=== PATIENT | male | born 1965 | race Caucasian/White ===

== ENCOUNTER 2018-05-26 05:54 | Inpatient (IN) ==
[2018-05-26] MEDS ORDERED: CeFAZolin Syr 2,000MG/20 ML 2,000 MG/20 ML SYRINGE IVPB ONE (06:18)
[2018-05-26] MEDS ORDERED: Ringers Solution, Lactated 1,000 ML IVC SCH ×2 (06:30→10:30)
--- NOTE | 2018-05-26 06:39 | History & Physical Report ---
Date of Encounter: 05/26/18 Time of Encounter: 06:39 24 Hour HP Update - Instructions Instructions: If the History and Physical is less than 30 days old and was completed prior to A.M. admission and or procedure and has NOT been updated on calendar day of procedure please complete this update prior to performing procedure. - Update Patient reports changes in Medical Condition: No Changes in examination, assessment, or condition: No Changes in Medication: No Preop tests/diagnostics Reviewed: Yes Surgery Remains Indicated: Yes Consent for Planned Operative Procedure(s) Verified: Yes - Pre-Operative Checklist Preoperative Checklist Indicated: Yes Prophylactic Antibiotic Ordered: Yes Home Medications Include Beta Mallory: No Is VTE Prophylaxis Indicated?: Yes
[2018-05-26] MEDS ORDERED: Bupivacaine-MPF 0.25% 10 ML VIAL ONE (07:15)
--- NOTE | 2018-05-26 07:19 | Anesthesia Evaluation PreOp ---
Date of Encounter: 05/26/18 Time of Encounter: 07:17 - Past History Planned Operation: Robotic prostatectomy Cardiac History: Denies any Significant Hx Pulmonary History: Denies Any Significant HX [employer] History: Denies Any Significant HX Other Medical History: Other (prostate ca) Anesthesia History: No Prior Anesthetic Complications, Past Anesthesia (vasectomy, testicle drainage, toe, lasik, R foot) Alcohol Use: rarely Drug use: none Medications and Allergies Allergy/AdvReac Type Severity Reaction Status Date / Time No Known Allergies Allergy Verified 04/26/17 07:22 - Meds/Allergy Pre-op Review Medications Reviewed: Yes Allergies Reviewed: Yes Beta Blockers on Current Med List: No Anesthesia Results - Labs pending Anesthesia Exam O2 Sat Height 1.75 m Height 1.75 m Height 1.75 m Weight 106.141 kg Weight 106.141 kg Weight 106.141 kg O2 Sat by Pulse Oximetry 98 O2 Sat by Pulse Oximetry 98 Vital Signs Temp Pulse Resp BP Pulse Ox 98.3 F 104 18 122/82 98 05/26/18 06:17 05/26/18 06:17 05/26/18 06:17 05/26/18 06:17 05/26/18 06:17 Weight: 106kg NPO (# of Hours): >8 Pain Scale: 3 (toe) Pain Scale Used: Numeric (1 - 10) - HEENT Pupil (Motor): Pupils equal, EOMI Mallampati: II (full jasmine) Teeth: Normal Oral Opening: Greater than 3 - [employer] LOC: Oriented [employer] Motor: Normal RUE, Normal LUE, Normal RLE, Normal LLE, Normal Face [employer] Sensory: Normal: RUE, LUE, RLE, LLE, Face - Cardiac Rhythm: Regular - Pulmonary Breath Sounds: bilateral Clear Respiratory Effort: Symmetrical Anesthesia Assess/Plan ASA Score: 3 (prostate ca) Monitoring Plan: Standard Monitors Recovery Plan: PACU
[2018-05-26] MEDS ORDERED: *HR* Rocuronium Bromide 50 MG/5 ML VIAL ONE ×3 (07:33→10:17)
[2018-05-26] MEDS ORDERED: Lidocaine -MPF 2% 2 ML VIAL ONE (07:33)
[2018-05-26] MEDS ORDERED: Dexamethasone 4 MG/ML VIAL ONE (07:33)
[2018-05-26] MEDS ORDERED: Ondansetron 4 MG/2 ML VIAL ONE ×2 (07:33→13:12)
[2018-05-26] MEDS ORDERED: Lidocaine -MPF 4% 5 ML AMPUL ONE (07:33)
[2018-05-26] MEDS ORDERED: *HR* Propofol 200 MG/20 ML VIAL IVP ONE (07:34)
[2018-05-26] MEDS ORDERED: *HR* Midazolam HCl 2 MG/2 ML VIAL ONE (07:34)
[2018-05-26] MEDS ORDERED: *HR* FentaNYL (PF) 100 MCG/2 ML VIAL ONE (07:34)
[2018-05-26] MEDS ORDERED: Acetaminophen IV 1,000 MG/100 ML INFUS..BTL ONE (07:39)
[2018-05-26 08:00] LABS: Basophils % 0.3 %; Eosinophils # 0.2 K/mcL (0.0-0.6); Eosinophils % 2.7 %; Hematocrit 45.2 % (37.5-50.1); Hemoglobin 15.2 g/dL (12.9-16.9); Immature Granulocytes % 0.2 % (0-4); Lymphocytes # 1.5 K/mcL (0.6-4.6); Lymphocytes % 24.7 %; Mean Corpuscular HGB Conc 33.6 g/dL (31.6-35.5); Mean Corpuscular Hemoglobin 28.6 pg (28.0-33.3); Mean Platelet Volume 9.9 fL (9.4-12.4); Monocytes # 0.6 K/mcL (0.0-1.3); Monocytes % 10.8 %; Neutrophils # 3.6 K/mcL (1.6-8.9); Platelet Count 221 K/mcL (140-400); Red Blood Count 5.32 M/mcL (4.19-5.50); Red Cell Distribution Width 13.2 % (11.5-14.5); Segmented Neutrophils % 61.3 %
[2018-05-26 08:17] LABS: BUN/Creatinine Ratio 19 (6-26); Blood Urea Nitrogen 15 mg/dL (6-20); Calcium 9.1 mg/dL (8.6-10.3); Carbon Dioxide 33 mEq/L (23-29); Chloride 103 mEq/L (98-107); Glucose 109 mg/dL (70-105); Osmolality,Calculated 283 (280-300); Potassium 4.4 mEq/L (3.5-5.1); Sodium 136 mEq/L (136-145); eGFR For Non-African Americans > 60 (> 60)
[2018-05-26] MEDS ORDERED: *HR* PHENYLEPHRINE 1,000 MCG/10 ML SYRINGE IVP ONE (08:39)
[2018-05-26] MEDS ORDERED: *HR* HYDROmorphone (PF) 1 MG/ML SYRINGE IVP PRN (10:21)
[2018-05-26] MEDS ORDERED: Ondansetron 4 MG/2 ML VIAL IVP ONE (10:21)
[2018-05-26] MEDS ORDERED: *HR* Meperidine 25 MG/ML SYRINGE IVP PRN (10:21)
[2018-05-26] MEDS ORDERED: *HR* Promethazine 25 MG/ML VIAL IVP PRN (10:21)
[2018-05-26] MEDS ORDERED: *HR* OxyCODONE Immed Rel 5 MG TABLET PO PRN ×2 (10:21→15:06)
[2018-05-26] MEDS ORDERED: Neostigmine Methylsulfate 3 MG/3 ML SYRINGE ONE (12:56)
[2018-05-26] MEDS ORDERED: Ketorolac 30 MG/ML VIAL ONE (13:06)
[2018-05-26] MEDS ORDERED: *HR* HYDROMORPHONE 2 MG/ML VIAL ONE (13:33)
--- NOTE | 2018-05-26 13:34 | Operative Note ---
Date of procedure: 05/26/18 Pre-op diagnosis: Prostate cancer Post-op diagnosis: same Procedure: Robotic-assisted radical prostatectomy with bilateral pelvic lymph node dissection Implants: 20-Citizen [place] Mcdonnell catheter 19-[place] Adebayo drain Complications: None Anesthesia: GETA Surgeon: Romel Lawler Was there an assistant service manager present: Yes Applications System Analyst: Gabby Lim Estimated blood loss (cc): 150 Specimen: prostate, left and right pelvic lymph nodes, fat over prostate Condition: stable Disposition: PACU Procedure in Detail: INDICATIONS FOR PROCEDURE: Mr. Delacruz is a 53 year-old male with history of elevated PSA. He was found on prostate needle biopsy to have Jenny 3+4 prostate cancer along the left side. He is now presenting for robotic assisted prostatectomy with bilateral pelvic lymph node dissection. He was informed of the risks of the procedure including but not limited to bleeding, infection, injury to other structures, need for further procedures, lymphocele, urinary incontinence, urine leak, erectile dysfunction, bladder neck contracture, rectal injury, and the risk of anesthesia. He is willing to proceed. PROCEDURE: After informed consent was obtained, the patient was taken to the operating room, placed supine on the table. He was given IV antibiotics for antibiotic coverage. He had KERON's and SCD's placed on the lower extremities for DVT prophylaxis. Induction of general anesthesia was performed. The arms were tucked and he was placed in lithotomy position. He was secured to the OR table with padding. A 10mm incision was made in the infraumbilical region.. The Veress needle was introduced. The water drop test passed. Pneumoperitoneum was initiated with low pressures initially. The abomen was insufflated. I then placed a robotic port through this incision. Once the trocar was in place, the 0 degree camera for the robot was placed in the field and remaining trocars were placed. Robotic ports were placed x 2 on the right side. We placed another robotic port to the left of the umbilicus. We also placed a 12mm port in the left lower quadrant and a 5mm port superior and to the left of the umbilicus. Once all trocars were in place, the robot was docked to the patient and the monopolar scissors were placed on the right robotic arm. The bipolar [place] was in the left robotic arm and the Prograsp in the 4th arm. We initially retracted the bowel with the 4th arm. The medial umbilical ligaments were cauterized and the bladder was taken down off the anterior abdominal wall using electrocautery. The bladder was dissected down to the endopelvic fascia. The bladder was then grasped with a 4th arm and retracted cephalad. We then swept the periprostatic fat off the prostate as well as the pelvic sidewall. We then incised the endopelvic fascia on both sides and carried the incision up to the prostatic apex, sweeping the levator fibers off of the prostate. The puboprostatic ligaments were carefully incised. We then placed an 0 Vicryl suture through the dorsal venous complex and tied it down with a slip knot. Once the dorsal venous complex was ligated, we then turned our attention to the bladder neck which was incised with the monopolar cautery until the catheter was visualized at the bladder neck. The posterior bladder neck was then opened using the cautery until the space between the prostate and the bladder neck was visual ized. Eventually, the vas deferens and seminal vesicals were encountered. The vas deferens were cauterized and divided. We pulled the seminal vesicles up into the field to help retract the prostate in cephalad direction. Denonvillier's fascia was dissected off the prostate posteriorly. The left nerve bundle was then released sharply. I carefully divided the pedicles using multiple Hem-o-wilson clips to clip the larger prostatic pedicle. Once the pedicles were controlled the nerves were carefully dissected off the posterior aspect of the prostate. Attention was then turned to the right side. The nerve bundle was again released sharply and the pedicles were controlled using Hem-o-wilson clips. The nerve bundle was then carefully dissected off the posterior aspect of the prostate. We then used the 4th arm to place the prostate on stretch in cephalad direction. We then transected the dorsal venous complex. The stitch over the dorsal venous complex came off. There was a mild amount of bleeding from the dorsal vein. Once I got to the urethra I oversewed the dorsal vein with an 0 Vicryl suture. A second 2-0 Vicryl suture was used to selectively close another vessel at the dorsal vein which was bleeding. The urethra was then this was incised with cold scissors. I cut across the urethra until the catheter was visualized. The catheter was removed and the posterior urethra was transected. The prostate was then freed. Hemostasis was adequate. Attention was then turned to the left pelvic sidewall. The external iliac vein was identified. Careful dissection proceeded anteriorly to the node of [place]. A clip was placed across this. The node packet was dissected down to the obturator nerve. This was identified. The pelvic lymph node packets were then sent separately. I turned my attention to the right pelvic sidewall. The external iliac vein was identified. Careful dissection then isolated the lymph node packet and the obturator nerve was identified. Weck clips were placed at the superior aspect of the lymph node packet. a vein was identified located superficially. This was transected with the node packet. I placed a clip across it. The right pelvic lymph nodes were sent separately. The urethral vesicle anastomosis was then performed with a 3-0 V-Wilson suture in running fashion starting at 6 o'clock position. With two sutures tied together we then ran the right side up about [facility]. The left side was then run around until the bladder was reanastamosed to the urethra. The final 20 [place] catheter was placed into the bladder and balloon filled with 15 mL of sterile water. The bladder was irrigated. No leak was identified. A 19 [place] Adebayo drain was placed through the trocar down into the pelvis. The trocar was removed and drain sewn in place with a suture. The robot was then undocked from the patient. Using laparoscopic instruments I then moved the string from the Endo Catch bag over to the umbilical port with the assistance of the 8 mm robotic camera. After extending the incision slightly with the electrocautery the EndoCatch bag was then removed from the camera port. The abdominal fascia was then closed in an interrupted fashion with 0 Vicryl suture. All incisions were instilled with 0.25% Marcaine. The remaining trocars were removed under direct vision and all incisions were then closed with 4-0 Monocryl in subcuticular fashion. The patient was then awakened from general anesthesia and brought to the recovery room in good condition. All sponge, needle, and instrument counts were correct.
--- NOTE | 2018-05-26 14:43 | Anesthesia Evaluation Post Op ---
Date of Encounter: 05/26/18 Time of Encounter: 14:42 - Vital Signs Vital Signs: Vital Signs/O2 Sat/Glucose, Most Recent Temp Pulse Resp BP Pulse Ox 97.7 F 98 20 120/76 93 05/26/18 14:06 05/26/18 14:26 05/26/18 14:26 05/26/18 14:26 05/26/18 14:26 - Lungs Lungs: Clear Ascult./Percussion - Airway Airway: Non-obstructed - Cardiovascular Regular Rate - Mental Status Mental Status: Alert & Oriented, Answers Appropriately - Pain Pain Scale: 0 - Nausea Vomiting Nausea Vomiting: Not Present - Hydration Hydration: Tolerates oral liquids - Discharge PostOp Status: Transfer Patient to floor
[2018-05-26] MEDS ORDERED: Acetaminophen 325 MG TABLET PO PRN (15:06)
[2018-05-26] MEDS ORDERED: OXYCODONE Oral CONC 10 MG/0.5 ML ORAL.SYG SL PRN (15:06)
[2018-05-26] MEDS ORDERED: Naloxone 0.4 MG/ML INJ IVP PRN (15:06)
[2018-05-26] MEDS: *HR* Heparin 5,000 UNIT/ML VIAL SQ SCH (16:44)
[2018-05-26] MEDS: 0.9 % Sodium Chloride 1,000 ML IVC SCH (16:44)
[2018-05-26] MEDS: ceFAZolin 2,000 MG in 0.9 % Sodium Chloride 100 ML IVPB SCH (17:31)
[2018-05-26] MEDS: Ketorolac 15 MG/ML VIAL IVP PRN (22:16)
[2018-05-27] MEDS: ceFAZolin 2,000 MG in 0.9 % Sodium Chloride 100 ML IVPB SCH ×2 (00:10→10:11)
[2018-05-27] MEDS: 0.9 % Sodium Chloride 1,000 ML IVC SCH ×3 (01:36→18:47)
[2018-05-27 03:26] LABS: Hematocrit 39.9 % (37.5-50.1); Mean Corpuscular HGB Conc 33.3 g/dL (31.6-35.5); Mean Corpuscular Hemoglobin 28.7 pg (28.0-33.3); Mean Corpuscular Volume 86.2 fL (83.0-100.0); Mean Platelet Volume 9.7 fL (9.4-12.4); Platelet Count 231 K/mcL (140-400); Red Blood Count 4.63 M/mcL (4.19-5.50); Red Cell Distribution Width 13.5 % (11.5-14.5)
[2018-05-27 03:31] LABS: Hemoglobin 13.3 g/dL (12.9-16.9)
[2018-05-27 03:48] LABS: BUN/Creatinine Ratio 20 (6-26); Blood Urea Nitrogen 18 mg/dL (6-20); Calcium 8.3 mg/dL (8.6-10.3); Carbon Dioxide 28 mEq/L (23-29); Chloride 103 mEq/L (98-107); Glucose 142 mg/dL (70-105); Osmolality,Calculated 288 (280-300); Potassium 4.6 mEq/L (3.5-5.1); Sodium 137 mEq/L (136-145); eGFR For Non-African Americans > 60 (> 60)
[2018-05-27] MEDS: *HR* Heparin 5,000 UNIT/ML VIAL SQ SCH ×2 (06:09→18:15)
--- NOTE | 2018-05-27 09:19 | Discharge Summary ---
Orders not resulted at time of discharge: Pending orders 05/26/18 12:08 Surgical Pathology [PTH] Routine 05/26/18 12:14 Surgical Pathology [PTH] Routine 05/26/18 13:18 Surgical Pathology [PTH] Routine 05/26/18 13:22 Surgical Pathology [PTH] Routine Date of Encounter: 05/31/18 Time of Encounter: 07:04 - Discharge Diagnosis (1) Prostate cancer Priority: Primary Status: Acute (2) Chronically elevated hemidiaphragm Priority: Secondary Status: Acute (3) Postoperative ileus Priority: Secondary Status: Acute - Hospital Course Hospital course: Mr. Delacruz is a 53 year old male with a history of prostate cancer. On 05/26/2018 he underwent a robotic-assisted radical prostatectomy with bilateral pelvic lymph node dissection. On postoperative day #1 his diet was advanced. He became distended. He began to vomit. A KUB showed distended bowel loops with air-fluid levels. A CT scan showed a transition point in the terminal ileum. An NG tube was placed. Hospitalists and general surgery consults were obtained. Eventually, he began to pass gas. The NG tube was removed. His diet was slowly advanced. On postoperative day #5 he was tolerating general diet and having bowel movements. He was then discharged home that day. - Time Spent with Patient Total time spent providing and/or coordinating discharge services: Less than 30 minutes Labs on day of discharge: Labs from last 24 hours 05/27/18 05/27/18 02:57 02:57 WBC 11.1 D RBC 4.63 Hgb 13.3 D Hct 39.9 MCV 86.2 MCH 28.7 MCHC 33.3 RDW 13.5 Plt Count 231 MPV 9.7 Sodium 137 Potassium 4.6 Chloride 103 Carbon Dioxide 28 BUN 18 Creatinine 0.88 Est GFR ( Amer) > 60 Est GFR (Non-Af Amer) > 60 BUN/Creatinine Ratio 20 Glucose 142 H Calculated Osmolality 288 Calcium 8.3 L - Discharge Medications Prescriptions: Docusate Sodium [Doc-Q-Lace] 100 mg PO BID #60 capsule Home Medications: Docusate Sodium [Doc-Q-Lace] 100 mg PO BID #60 capsule 05/27/18 [Rx] Allergies/Adverse Reactions: Allergy/AdvReac Type Severity Reaction Status Date / Time No Known Allergies Allergy Verified 04/26/17 07:22 Date of admission: 05/26/18 14:57 Primary care physician: PCP [place] Consults: Internal medicine General surgery Discharging clinician: Romel Lawler Anticipated date of discharge: 05/31/18 Exam Initial Vital Signs Temp Pulse Resp BP Pulse Ox 98.3 F 104 18 122/82 98 05/26/18 06:17 05/26/18 06:17 05/26/18 06:17 05/26/18 06:17 05/26/18 06:17 - General physical appearance Present: well developed, well nourished, no distress - Eyes Absent: icteric - ENT Present: normal nares - Neck Present: trachea midline - Respiratory Present: normal respiratory effort - Cardiovascular Cardiovascular exam IM: RRR - Abdomen Abdomen: Present: soft (Incisions are clean, dry, and intact. No evidence of infection) - Genitourinary normal penis with no external lesions (Mcdonnell catheter in place with clear urine) - Integumentary Present: no rash - Neurologic Present: normal coordination - Musculoskeletal Present: normal gait - Patient Status Disposition: Home, Self-Care Condition: Good Functional capacity at discharge: independent ambulation Overall status at discharge: patient is progressing back to baseline - Discharge Instructions Follow Up With: Georgia Archer PAC [Physician Dampener] - 06/14/18 8:45 am Romel Lawler MD [Partnered Physician] - 06/02/18 10:15 am () [place],PCP [Primary Care Provider] - (Please follow up with your PCP.) Additional Instructions: Please provide catheter care instructions - leg bag, night bag, leg strap and how to change the bags appropriately. 1. No heavy lifting greater than 20 pounds x2 weeks. 2. No tub baths for 2 weeks. 3. May shower. 4. He should follow up in 1 week for voiding trial. 5. He should return for any fevers, chills, nausea, vomiting, or significant hematuria. 6. Please provide dressing supplies for drain site. 7. He can use bacitracin to the penile meatus for catheter comfort. - Diet and Activity Activity: increase activity as tolerated Diet: advance to your usual diet
[2018-05-27] MEDS: Ondansetron 4 MG/2 ML VIAL IVP PRN ×2 (10:11→19:25)
[2018-05-27] MEDS: Ketorolac 15 MG/ML VIAL IVP PRN (15:22)
[2018-05-27] MEDS ORDERED: Metoclopramide 10 MG/2 ML VIAL IVP PRN (15:49)
[2018-05-27] MEDS ORDERED: Bisacodyl 10 MG RECTAL SUPPOSITORY RC ONE (15:51)
[2018-05-27] MEDS ORDERED: Famotidine 20 MG TABLET PO PRN (18:57)
--- NOTE | 2018-05-27 18:59 | Event Note ---
Date of Encounter: 05/27/18 Time of Encounter: 18:58 Patient felt bloated this afternoon. I added on Reglan and ordered a suppository. He will remain in patient tonight.
[2018-05-27] MEDS ORDERED: *HR* Promethazine 25 MG/ML VIAL IVP PRN (20:02)
[2018-05-27] MEDS ORDERED: Ondansetron 4 MG/2 ML VIAL IVP PRN (21:35)
[2018-05-27] MEDS ORDERED: Ondansetron 4 MG/2 ML VIAL IVP ONE (21:36)
[2018-05-27 21:58] LABS: Basophils % 0.2 %; Hematocrit 46.3 % (37.5-50.1); Immature Granulocytes % 0.3 % (0-4); Lymphocytes # 0.9 K/mcL (0.6-4.6); Lymphocytes % 6.4 %; Mean Corpuscular HGB Conc 32.4 g/dL (31.6-35.5); Mean Corpuscular Hemoglobin 28.5 pg (28.0-33.3); Mean Corpuscular Volume 87.9 fL (83.0-100.0); Mean Platelet Volume 9.4 fL (9.4-12.4); Monocytes # 0.9 K/mcL (0.0-1.3); Monocytes % 6.1 %; Neutrophils # 12.8 K/mcL (1.6-8.9); Platelet Count 297 K/mcL (140-400); Red Blood Count 5.27 M/mcL (4.19-5.50); Red Cell Distribution Width 13.6 % (11.5-14.5)
[2018-05-27] MEDS ORDERED: Isovue-370 500 ML INFUS..BTL IV ONE (22:51)
--- NOTE | 2018-05-28 02:26 | Internal Medicine Consult Note ---
Addendum entered and electronically signed by Moe Pastor 05/29/18 15:42: Original Note: <Moe Abbott - Last Filed: 05/28/18 02:24> Date of Encounter: 05/28/18 Time of Encounter: 02:24 - Assessment and plan (1) Shortness of breath Current Visit: Yes Status: Acute (2) Abdominal pain Current Visit: Yes Status: Acute - Time Spent With Patient Total time spent is greater than 50% in coordination of care (as documented) at patient's floor/unit and/or counseling patient: Internal Medicine - CN: HPI - Data of Consult Patient: new to practice Requesting Physician: Romel Lawler, - Consult Narrative Reason for consult: Increasing shortness of breath post surgery History of present illness: Mr. Delacruz is a 53 year old male presenting with increased shortness of breath, abdominal pain and distention, and vomiting. He recently underwent surgery for prostate cancer on 05/[address] Lawler. At presentation he was on 8 L of oxygen and with an 02 SAT of 90%. Additionally patient was vomiting dark vomitus. He was afebrile at the time and his most recent CBC in a.m. was normal. Family also note that patient was somnolent. He recently received Phenergan due to nausea and vomiting. He ordered stat CBC, CXR. CBC returned elevated white blood cell count of 14. His chest x-ray showed significant elevation of left hemidiaphragm dilation and GI tract. At this point we started at NG tube which had 1.4 L of output. We then ordered CT abdomen and chest with contrast\which showed moderate axilla atelectasis left upper and lower lobes, minimal right basilar atelectasis, mildly dilated jejunum without discrete transition point indicating postoperative ileus, and small amounts of free air in the abdomen normal for surgery. Past Med Surg Social Fam HX - Past Medical History Medical history: no medical history Additional medical history: prostate cancer Psychiatric history: no psych history - Past Surgical History Surgical History: vasectomy, other Additional surgical history: VAS 1989. right toe sx x3 2004. testicle drainage 2014. lasik sx 10/2016 - Social History Smoking Status: Never smoker Smokeless Tobacco Status: No Alcohol use: rarely Drug use: none Internal Medicine - CN: Meds Docusate Sodium [Doc-Q-Lace] 100 mg PO BID #60 capsule 05/27/18 [Rx] Allergy/AdvReac Type Severity Reaction Status Date / Time No Known Allergies Allergy Verified 04/26/17 07:22 Hospitalist - CN: Exam - Constitutional Vitals: Temp Pulse Resp BP Pulse Ox 99.0 F 101 16 135/73 92 05/27/18 23:57 05/27/18 23:57 05/27/18 23:57 05/27/18 23:57 05/27/18 23:57 General appearance IM: Present: A&O X 3, severe distress Exam: . - Head Head exam: Present: atraumatic, normal inspection - Eye Eye exam: Present: EOMI, normal appearance - Neck Neck exam general surgery: Present: supple, trachea midline - Respiratory Respiratory exam: Present: decreased breath sounds, rhonchi, wheezes - Expanded Respiratory Exam Location: decreased breath sounds: Left, wheezes: Left, Right - Cardiovascular Cardiovascular exam IM: Present: RRR, +S1, +S2 - GI/Abdominal GI/Abdominal exam IM: Present: distended, rigid, tenderness. Absent: guarding - Extremities Exam Extremities exam IM: Present: normal inspection, radial pulses palpable and symmetrical - Neurological Exam Neurological exam: Present: no focal deficits - Psychiatric Psychiatric exam: Present: agitated, anxious - Skin Skin exam IM: Present: dry, intact, warm Internal Medicine - CN: Reslt - Labs CBC & Chem 7: 05/27/18 21:48 05/27/18 02:57 Labs: Short CBC 05/27/18 05/27/18 Range/Units 02:57 21:48 WBC 11.1 D 14.7 H (4.3-11.1) K/mcL Hgb 13.3 D 15.0 D (12.9-16.9) g/dL Hct 39.9 46.3 (37.5-50.1) % Plt Count 231 297 (140-400) K/mcL Neutrophils # 12.8 H (1.6-8.9) K/mcL BMP 05/27/18 02:57 Sodium 137 Potassium 4.6 Chloride 103 Carbon Dioxide 28 BUN 18 Creatinine 0.88 Glucose 142 H Calcium 8.3 L - Impressions Impressions Chest X-Ray 05/27/18 21:38 IMPRESSION: 1. Interval marked elevation of the left hemidiaphragm with volume loss in the left lung. CT should be considered to better evaluate. D/ / 05/27/2018 23:08:39 Trevor Roche MD / [email or web address] Interpreting Provider: Trevor Roche MD KUB X-Ray 05/27/18 23:07 IMPRESSION: 1. Possible free intraperitoneal air under the right hemidiaphragm. 2. Nasogastric tube in appropriate position. 3. Interval decompression of the stomach. Persistent elevated left hemidiaphragm. 4. Dilated small bowel up to 5.5 cm concerning for small bowel obstruction. D/ / Trevor Roche MD / Trevor Roche MD Interpreting Provider: Trevor Roche MD Abdomen/Pelvis CT 05/28/18 22:51 IMPRESSION: 1. Elevated left hemidiaphragm. Moderate atelectasis or airspace disease in the left upper lobe and left lower lobe. An element of chronic volume loss and scarring is suspected in the left lower lobe. 2. Minimal right basilar atelectasis. 3. Mildly dilated jejunum up to 4 cm without discrete transition point. Findings favor an acute postoperative ileus. 4. Small amount of free intraperitoneal air and small amount of pelvic ascites are likely postoperative given the recent prostatectomy. Associated soft tissue gas is present in the pelvis and proximal thighs. D/ / Trevor Roche MD / Trevor Roche MD Interpreting Provider: Trevor Roche MD Chest CT 05/28/18 22:54 IMPRESSION: 1. Elevated left hemidiaphragm. Moderate atelectasis or airspace disease in the left upper lobe and left lower lobe. An element of chronic volume loss and scarring is suspected in the left lower lobe. 2. Minimal right basilar atelectasis. 3. Mildly dilated jejunum up to 4 cm without discrete transition point. Findings favor an acute postoperative ileus. 4. Small amount of free intraperitoneal air and small amount of pelvic ascites are likely postoperative given the recent prostatectomy. Associated soft tissue gas is present in the pelvis and proximal thighs. D/ / Trevor Roche MD / Trevor Roche MD Interpreting Provider: Trevor Roche MD Consult Discharge Plan - Plan Additional Instructions: Please provide catheter care instructions - leg bag, night bag, leg strap and how to change the bags appropriately. 1. No heavy lifting greater than 20 pounds x2 weeks. 2. No tub baths for 2 weeks. 3. May shower. 4. He should follow up in 1 week for voiding trial. 5. He should return for any fevers, chills, nausea, vomiting, or significant hematuria. 6. Please provide dressing supplies for drain site. 7. He can use bacitracin to the penile meatus for catheter comfort. Referrals: Romel Lawler MD [Partnered Physician] - (Web request sent 05/27/18 at 1000. ) [facility] - (Please follow up with your PCP.) Prescriptions: Docusate Sodium [Doc-Q-Lace] 100 mg PO BID #60 capsule <Moose Tyson - Last Filed: 05/28/18 19:39> Date of Encounter: 05/28/18 - Time Spent With Patient Total time spent is greater than 50% in coordination of care (as documented) at patient's floor/unit and/or counseling patient: Internal Medicine - CN: HPI - Data of Consult Requesting Physician: Romel Lawler, - Consult Narrative History of present illness: Mr. Delacruz is a 53 year old male Hospitalist - CN: Exam - Constitutional Vitals: Temp Pulse Resp BP Pulse Ox 98.2 F 73 16 113/80 93 05/28/18 19:00 05/28/18 19:00 05/28/18 19:00 05/28/18 19:00 05/28/18 19:00 Internal Medicine - CN: Reslt - Labs CBC & Chem 7: 05/28/18 04:12 05/28/18 04:12 Labs: Short CBC 05/27/18 05/28/18 Range/Units 21:48 04:12 WBC 14.7 H 12.8 H (4.3-11.1) K/mcL Hgb 15.0 D 13.9 (12.9-16.9) g/dL Hct 46.3 41.5 (37.5-50.1) % Plt Count 297 261 (140-400) K/mcL Neutrophils # 12.8 H (1.6-8.9) K/mcL BMP 05/28/18 04:12 Sodium 138 Potassium 4.8 Chloride 100 Carbon Dioxide 33 H BUN 21 H Creatinine 0.83 Glucose 135 H Calcium 8.7 - Impressions Impressions Chest X-Ray 05/27/18 21:38 IMPRESSION: 1. Interval marked elevation of the left hemidiaphragm with volume loss in the left lung. CT should be considered to better evaluate. D/ /27/2018 23:08:39 Trevor Roche MD / [email or web address] Interpreting Provider: Trevor Roche MD KUB X-Ray 05/27/18 23:07 IMPRESSION: 1. Possible free intraperitoneal air under the right hemidiaphragm. 2. Nasogastric tube in appropriate position. 3. Interval decompression of the stomach. Persistent elevated left hemidiaphragm. 4. Dilated small bowel up to 5.5 cm concerning for small bowel obstruction. D/ : / 05/28/2018 07:04:02 Trevor Roche MD / [place] Interpreting Provider: Trevor Roche MD Abdomen/Pelvis CT 05/28/18 22:51 IMPRESSION: 1. Elevated left hemidiaphragm. Moderate atelectasis or airspace disease in the left upper lobe and left lower lobe. An element of chronic volume loss and scarring is suspected in the left lower lobe. 2. Minimal right basilar atelectasis. 3. Mildly dilated jejunum up to 4 cm without discrete transition point. Findings favor an acute postoperative ileus. 4. Small amount of free intraperitoneal air and small amount of pelvic ascites are likely postoperative given the recent prostatectomy. Associated soft tissue gas is present in the pelvis and proximal thighs. D/ : / 05/28/2018 07:13:47 Trevor Roche MD / [place] Interpreting Provider: Trevor Roche MD Chest CT 05/28/18 22:54 IMPRESSION: 1. Elevated left hemidiaphragm. Moderate atelectasis or airspace disease in the left upper lobe and left lower lobe. An element of chronic volume loss and scarring is suspected in the left lower lobe. 2. Minimal right basilar atelectasis. 3. Mildly dilated jejunum up to 4 cm without discrete transition point. Findings favor an acute postoperative ileus. 4. Small amount of free intraperitoneal air and small amount of pelvic ascites are likely postoperative given the recent prostatectomy. Associated soft tissue gas is present in the pelvis and proximal thighs. D/ / 05/28/2018 07:13:47 Trevor Roche MD / [place] Interpreting Provider: Trevor Roche MD - Attending Attestation I saw and evaluated the patient. I reviewed the residents note, performed my own physical examination and agree with findings and plan as documented in the residents note. Patient seen and examined on 05/28/18. Consult requested from Dr. Lawler of urology. Patient postop prostate surgery, developed ileus. Imaging showed GI distension. Placed NG tube, and patient had large amounts of gastric contents collected. Abdominal pain and distension improved. Will keep patient NPO with NG tube, continue to monitor.
[2018-05-28] MEDS ORDERED: Ipratropium/Albuterol Neb 3 ML IH PRN (04:05)
[2018-05-28 04:37] LABS: Hematocrit 41.5 % (37.5-50.1); Hemoglobin 13.9 g/dL (12.9-16.9); Mean Corpuscular HGB Conc 33.5 g/dL (31.6-35.5); Mean Corpuscular Hemoglobin 28.8 pg (28.0-33.3); Mean Corpuscular Volume 85.9 fL (83.0-100.0); Mean Platelet Volume 9.7 fL (9.4-12.4); Platelet Count 261 K/mcL (140-400); Red Blood Count 4.83 M/mcL (4.19-5.50); Red Cell Distribution Width 13.6 % (11.5-14.5)
[2018-05-28 04:53] LABS: BUN/Creatinine Ratio 25 (6-26); Blood Urea Nitrogen 21 mg/dL (6-20); Calcium 8.7 mg/dL (8.6-10.3); Carbon Dioxide 33 mEq/L (23-29); Chloride 100 mEq/L (98-107); Glucose 135 mg/dL (70-105); Magnesium 2.2 mg/dL (1.6-2.6); Osmolality,Calculated 291 (280-300); Potassium 4.8 mEq/L (3.5-5.1); Sodium 138 mEq/L (136-145); eGFR For Non-African Americans > 60 (> 60)
[2018-05-28] MEDS: *HR* Heparin 5,000 UNIT/ML VIAL SQ SCH ×2 (05:39→17:50)
--- NOTE | 2018-05-28 08:35 | Urology Progress Note ---
Date of Encounter: 05/28/18 Time of Encounter: 08:32 - Assessment and Plan (1) Prostate cancer Current Visit: Yes Status: Acute Assessment and plan: 53-year-old man postoperative day #2 status post robotic-assisted radical prosta tectomy. He developed a postoperative ileus and required an NG tube placement. His abdominal distention is improved today. I will continue NG tube today until bowel function returns. I will add on IV acetaminophen for pain. We will use IV PPI for stomach prophylaxis. Continue with heparin subcutaneous for DVT prophylaxis. Okay to ambulate patient and NG tube while ambulating. Continue Mcdonnell catheter. He will remain inpatient for now until his bowel function returns. (2) Ileus Current Visit: Yes Status: Acute Progress Note Narrative: Yesterday he developed progressive abdominal distention. An NG tube was placed. Possible was consult. A large volume of stomach contents returned from the NG tube. He says his abdominal distention has improved. He had a CT scan the chest, abdomen, and pelvis which showed evidence of a transition point in the terminal ileum. Objective Initial Vital Signs Temp Pulse Resp BP Pulse Ox 98.3 F 104 18 122/82 98 05/26/18 06:17 05/26/18 06:17 05/26/18 06:17 05/26/18 06:17 05/26/18 06:17 - General physical appearance Present: well developed, well nourished, no distress - Respiratory Present: normal respiratory effort - Abdomen Present: distended (Abdomen distention is somewhat improved. There is less tympani today. Incisions are clean, dry, and intact.) - Genitourinary Present: normal penis with no external lesions (Mcdonnell catheter in good position.) - Labs 05/28/18 04:12 05/28/18 04:12 Diabetes panel 05/28/18 Range/Units 04:12 Sodium 138 (136-145) mEq/L Potassium 4.8 (3.5-5.1) mEq/L Chloride 100 (98-107) mEq/L Carbon Dioxide 33 H (23-29) mEq/L BUN 21 H (6-20) mg/dL Creatinine 0.83 (0.70-1.30) mg/dL Glucose 135 H (70-105) mg/dL Calcium 8.7 (8.6-10.3) mg/dL Calcium panel 05/28/18 Range/Units 04:12 Calcium 8.7 (8.6-10.3) mg/dL Pituitary panel 05/28/18 Range/Units 04:12 Sodium 138 (136-145) mEq/L Potassium 4.8 (3.5-5.1) mEq/L Chloride 100 (98-107) mEq/L Carbon Dioxide 33 H (23-29) mEq/L BUN 21 H (6-20) mg/dL Creatinine 0.83 (0.70-1.30) mg/dL Glucose 135 H (70-105) mg/dL Calcium 8.7 (8.6-10.3) mg/dL Adrenal panel 05/28/18 Range/Units 04:12 Sodium 138 (136-145) mEq/L Potassium 4.8 (3.5-5.1) mEq/L Chloride 100 (98-107) mEq/L Carbon Dioxide 33 H (23-29) mEq/L BUN 21 H (6-20) mg/dL Creatinine 0.83 (0.70-1.30) mg/dL Glucose 135 H (70-105) mg/dL Calcium 8.7 (8.6-10.3) mg/dL Consult Discharge Plan - Plan Additional Instructions: Please provide catheter care instructions - leg bag, night bag, leg strap and how to change the bags appropriately. 1. No heavy lifting greater than 20 pounds x2 weeks. 2. No tub baths for 2 weeks. 3. May shower. 4. He should follow up in 1 week for voiding trial. 5. He should return for any fevers, chills, nausea, vomiting, or significant hematuria. 6. Please provide dressing supplies for drain site. 7. He can use bacitracin to the penile meatus for catheter comfort. Referrals: Romel Lawler MD [Partnered Physician] - (Web request sent 05/27/18 at 1000. ) [facility] Provider[facility] - (Please follow up with your PCP.) Prescriptions: Docusate Sodium [Doc-Q-Lace] 100 mg PO BID #60 capsule
[2018-05-28] MEDS ORDERED: Bisacodyl 10 MG RECTAL SUPPOSITORY RC PRN (08:36)
[2018-05-28] MEDS ORDERED: Acetaminophen IV 1,000 MG/100 ML INFUS..BTL IVPB PRN (08:36)
[2018-05-28] MEDS: Pantoprazole 40 MG VIAL IVP SCH (09:56)
[2018-05-28] MEDS: 0.9 % Sodium Chloride 1,000 ML IVC SCH ×2 (10:30→19:01)
--- NOTE | 2018-05-28 11:51 | General Surgery Consult Note ---
Date of Encounter: 05/28/18 Time of Encounter: 11:47 Assessment and Plan (1) Postoperative ileus Current Visit: Yes Status: Acute patients postoperative ileus is not an unexpected event continue ngt decompression given volume out ngt last 24 hrs, is in good position, patient has passed some flatus but it hasnt been consistent prn antiemtics gi/dvt prophylaxis ambulating aggressive pulmonary toilet prn pain control check urine culture (2) Hiatal hernia without gangrene and obstruction Current Visit: Yes Status: Chronic recommend followup with Dr Rajan as outpatient in the next few months as essentially all of patients stomach is within his chest (3) S/P prostatectomy Current Visit: Yes Status: Acute (4) Shortness of breath Current Visit: Yes Status: Acute aggressive pulmonary toilet, scheduled aerosols/IS History of Present Illness Consult date: 05/28/18 Reason for consult: other (ileus) Requesting physician: Romel Lawler History of present illness: Patient is a 53 yo male who underwent a robotic prostatectomy on Tuesday05.26.18 for prostate cancer. POD 1 patient was bloated and distended. Abdominal imaging showed dilated loops small bowel and ngt was placed. CT scan abdomen and pelvis today showed likely postoperative ileus with large hiatal hernia with essentially of of patients stomach in his chest, elevated left hemidiaphragm and left lower lung scarring. He is not currently having nausea, his distention is improved. He has passed a small amount of flatus last evening and today but nothing consistent. He has been running low grade temperatures. Past Med Surg Social Fam HX - Past Medical History Source: patient Medical history: no medical history, cancer (prostate) Additional medical history: prostate cancer Psychiatric history: no psych history - Past Surgical History Surgical History: vasectomy, other (s/p robotic prostatectomy) Additional surgical history: VAS 1989. right toe sx x3 2004. testicle drainage 2014. lasik sx 10/2016 - Social History Smoking Status: Never smoker Smokeless Tobacco Status: No Alcohol use: rarely Drug use: none - Family History Grandmother History Unknown: Yes Medications and Allergies Docusate Sodium [Doc-Q-Lace] 100 mg PO BID #60 capsule 05/27/18 [Rx] Allergy/AdvReac Type Severity Reaction Status Date / Time No Known Allergies Allergy Verified 04/26/17 07:22 Review of Systems All systems PM: reviewed and no additional remarkable complaints except as stated All systems PM: The remainder of the systems were reviewed and are negative General Surgery Exam Initial Vital Signs Temp Pulse Resp BP Pulse Ox 98.3 F 104 18 122/82 98 05/26/18 06:17 05/26/18 06:17 05/26/18 06:17 05/26/18 06:17 05/26/18 06:17 - General physical appearance well developed, well nourished, moderate distress, moderate pain - Eyes PERRL, normal ocular movement - ENT normal mucosa, normocephalic - Neck trachea midline - Respiratory normal expansion, clear to auscultation - Cardiovascular Cardiovascular exam: Present: RRR - Abdomen Abdomen general surgery: Present: bowel sounds present, soft, tender (generalized expected postoperative tenderness). Absent: distended, guarding, rebound - Incision Incision: Present: clean and dry, intact. Absent: erythema - Integumentary Integumentary general surgery: Present: warm and dry, no abnormal pigmentation - Neurologic Present: CN 2-12 grossly intact - Musculoskeletal Present: normal gait, normal posture - Psychiatric Psychiatric general surgery: Present: A&Ox3, speech is normal Exam Initial Vital Signs Temp Pulse Resp BP Pulse Ox 98.3 F 104 18 122/82 98 05/26/18 06:17 05/26/18 06:17 05/26/18 06:17 05/26/18 06:17 05/26/18 06:17 Results - Labs 05/28/18 04:12 05/28/18 04:12 Vital Signs Temp Pulse Resp BP Pulse Ox 05/28/18 05:32 100.1 F H 05/28/18 03:31 99.7 F H 106 15 117/64 93 05/27/18 23:57 99.0 F 101 16 135/73 92 05/27/18 22:47 98.3 F 109 20 129/89 92 05/27/18 21:02 99.2 F 114 24 149/83 90 05/27/18 18:40 98.5 F 92 16 137/81 97 05/27/18 15:48 98.6 F 115 20 136/91 93 Intake and Output 05/27/18 05/28/18 05/28/18 23:59 07:59 15:59 Intake Total 0 / 0 0 / 0 1000 / 1000 Output Total 1600 / 1600 1050 / 1050 Balance -1600 / -1600 -1050 / -1050 1000 / 1000 Intake: IV Fluids 1000 / 1000 0.9 % Sodium Chloride 1,000 ML 1000 / 1000 @ 125 mls/hr IVC .Q8H MICHELLE Rx#: [id number] Oral 0 / 0 0 / 0 Output: Emesis 200 / 200 Catheter 0 / 0 650 / 650 Gastric Drainage 1400 / 1400 400 / 400 Other: Meal NPO # Bowel Movements 0 Weight 107.9 kg Blood Glucose* 130 Patient Weight 05/28/18 23:59 Weight 107.9 kg Short CBC 05/28/18 05/27/18 Range/Units 04:12 21:48 WBC 12.8 H 14.7 H (4.3-11.1) K/mcL Hgb 13.9 15.0 D (12.9-16.9) g/dL Hct 41.5 46.3 (37.5-50.1) % Plt Count 261 297 (140-400) K/mcL Neutrophils # 12.8 H (1.6-8.9) K/mcL BMP 05/28/18 Range/Units 04:12 Sodium 138 (136-145) mEq/L Potassium 4.8 (3.5-5.1) mEq/L Chloride 100 (98-107) mEq/L Carbon Dioxide 33 H (23-29) mEq/L BUN 21 H (6-20) mg/dL Creatinine 0.83 (0.70-1.30) mg/dL Glucose 135 H (70-105) mg/dL Calcium 8.7 (8.6-10.3) mg/dL Chest X-Ray 05/27/18 21:38 IMPRESSION: 1. Interval marked elevation of the left hemidiaphragm with volume loss in the left lung. CT should be considered to better evaluate. D/ / 05/27/2018 23:08:39 Trevor Roche MD / [email or web address] Interpreting Provider: Trevor Roche MD KUB X-Ray 05/27/18 23:07 IMPRESSION: 1. Possible free intraperitoneal air under the right hemidiaphragm. 2. Nasogastric tube in appropriate position. 3. Interval decompression of the stomach. Persistent elevated left hemidiaphragm. 4. Dilated small bowel up to 5.5 cm concerning for small bowel obstruction. D/ : / 05/28/2018 07:04:02 Trevor Roche MD / [place] Interpreting Provider: Trevor Roche MD Abdomen/Pelvis CT 05/28/18 22:51 IMPRESSION: 1. Elevated left hemidiaphragm. Moderate atelectasis or airspace disease in the left upper lobe and left lower lobe. An element of chronic volume loss and scarring is suspected in the left lower lobe. 2. Minimal right basilar atelectasis. 3. Mildly dilated jejunum up to 4 cm without discrete transition point. Findings favor an acute postoperative ileus. 4. Small amount of free intraperitoneal air and small amount of pelvic ascites are likely postoperative given the recent prostatectomy. Associated soft tissue gas is present in the pelvis and proximal thighs. D/ : / 05/28/2018 07:13:47 Trevor Roche MD / [place] Interpreting Provider: Trevor Roche MD Chest CT 05/28/18 22:54 IMPRESSION: 1. Elevated left hemidiaphragm. Moderate atelectasis or airspace disease in the left upper lobe and left lower lobe. An element of chronic volume loss and scarring is suspected in the left lower lobe. 2. Minimal right basilar atelectasis. 3. Mildly dilated jejunum up to 4 cm without discrete transition point. Findings favor an acute postoperative ileus. 4. Small amount of free intraperitoneal air and small amount of pelvic ascites are likely postoperative given the recent prostatectomy. Associated soft tissue gas is present in the pelvis and proximal thighs. D/ : / 05/28/2018 07:13:47 Trevor Roche MD / [place] Interpreting Provider: Trevor Roche MD - Imaging CT scan - abdomen: report reviewed, image reviewed CT scan - pelvis: report reviewed, image reviewed Consult Discharge Plan - Plan Additional Instructions: Please provide catheter care instructions - leg bag, night bag, leg strap and how to change the bags appropriately. 1. No heavy lifting greater than 20 pounds x2 weeks. 2. No tub baths for 2 weeks. 3. May shower. 4. He should follow up in 1 week for voiding trial. 5. He should return for any fevers, chills, nausea, vomiting, or significant hematuria. 6. Please provide dressing supplies for drain site. 7. He can use bacitracin to the penile meatus for catheter comfort. Referrals: Romel Lawler MD [Partnered Physician] - (Web request sent 05/27/18 at 1000. ) [facility]Primary Care Provider[facility] - (Please follow up with your PCP.) Prescriptions: Docusate Sodium [Doc-Q-Lace] 100 mg PO BID #60 capsule
--- NOTE | 2018-05-28 13:36 | Event Note ---
Date of Encounter: 05/28/18 Time of Encounter: 13:33 Patient was examined and reviewed the clinical history. NG tube in place with is still continuous gastric drain. Passing flatus. Better shortness of breath. Stable vitals. Reviewed the lab. General surgeon on board and planning to keep NG tube today and allowed ice sepsis. Patient had low-grade fever in the morning but not now. Most likely postop atelectasis but will also rule out underlying pneumonia. Continue incentive spirometry, oxygen by nasal cannula. Will repeat chest x-ray if required. Will also consider antibiotic if any sign of infection.
[2018-05-28] MEDS: Ipratropium/Albuterol Neb 3 ML IH SCH ×2 (15:57→21:35)
[2018-05-29] MEDS: 0.9 % Sodium Chloride 1,000 ML IVC SCH ×3 (02:05→18:15)
[2018-05-29] MEDS: Ipratropium/Albuterol Neb 3 ML IH SCH ×4 (03:40→21:33)
[2018-05-29 04:44] LABS: Hematocrit 40.3 % (37.5-50.1); Hemoglobin 12.7 g/dL (12.9-16.9); Mean Corpuscular HGB Conc 31.5 g/dL (31.6-35.5); Mean Corpuscular Hemoglobin 28.5 pg (28.0-33.3); Mean Corpuscular Volume 90.6 fL (83.0-100.0); Mean Platelet Volume 9.6 fL (9.4-12.4); Platelet Count 204 K/mcL (140-400); Red Blood Count 4.45 M/mcL (4.19-5.50); Red Cell Distribution Width 13.7 % (11.5-14.5)
[2018-05-29 05:07] LABS: Magnesium 2.1 mg/dL (1.6-2.6); Phosphorous 2.5 mg/dL (2.7-4.5)
[2018-05-29 05:08] LABS: BUN/Creatinine Ratio 27 (6-26); Blood Urea Nitrogen 18 mg/dL (6-20); Calcium 8.6 mg/dL (8.6-10.3); Carbon Dioxide 36 mEq/L (23-29); Chloride 103 mEq/L (98-107); Glucose 120 mg/dL (70-105); Osmolality,Calculated 299 (280-300); Sodium 143 mEq/L (136-145); eGFR For Non-African Americans > 60 (> 60)
[2018-05-29] MEDS: *HR* Heparin 5,000 UNIT/ML VIAL SQ SCH ×2 (06:00→17:21)
[2018-05-29] MEDS: Pantoprazole 40 MG VIAL IVP SCH (07:39)
--- NOTE | 2018-05-29 08:51 | Urology Progress Note ---
Addendum entered and electronically signed by Romel Lawler MD 05/29/18 09:24: The patient was seen and examined with the physician's retail sales assistant. I agree with the assessment and plan. Patient is doing better today. Abdomen is softer. He reports that he is passing gas and has had a small bowel movement. Appreciate hospitalist and general surgery input. Continue Mcdonnell catheter. We will defer to medicine management regarding electrolytes. NG tube per surgery. Original Note: Date of Encounter: 05/29/18 Time of Encounter: 08:15 - Assessment and Plan (1) Postoperative ileus Current Visit: Yes Status: Acute (2) Prostate cancer Current Visit: Yes Status: Acute (3) S/P prostatectomy Current Visit: Yes Status: Acute Assessment and plan: Patient is a 53-year-old male who presents 3 days postoperatively from a robotic-assisted radical prostatectomy with bilateral pelvic lymph node dissection. Pathology still pending. Patient developed ileus postoperatively and is currently undergoing nasogastric decompression. Vital signs are stable and afebrile. Appreciate surgical team co-management. Reviewed chemistry panel with Dr. Womack. Discussed D5 half-normal saline and potassium supplementation. Dr. Womack advises to continue normal saline based on laboratory findings and reevaluate for D5 and potassium tomorrow morning. I called Dr. Henson' office and spoke with Kesha, nurse, about Mr. Delacruz prior right foot surgery at 0830. Patient underwent a fusion with hardware of the right great toe and excision of soft tissue mass on 05/16/[address] Henson. Patient was due to have sutures removed tomorrow in the office. I asked Kesha if Dr. Henson prefers a consult for him to see the patient in house or if he prefers follow-up once patient is discharged. Kesha states she will talk to Dr. Henson and call me back with his recommendation. Progress Note Narrative: POD #3. Patient seen and examined sitting upright in bed with at bedside. Patient is in no apparent distress. NG tube is indwelling with approximately 300 mL of output. Patient has remained nothing by mouth. Mcdonnell catheter is indwelling and draining dark yellow urine into bedside bag. Objective Initial Vital Signs Temp Pulse Resp BP Pulse Ox 98.3 F 104 18 122/82 98 05/26/18 06:17 05/26/18 06:17 05/26/18 06:17 05/26/18 06:17 05/26/18 06:17 - General physical appearance Present: well developed, no distress, no pain - Respiratory Present: normal expansion, normal respiratory effort - Abdomen Present: wound (Primary dressings clean, dry, intact.) - Integumentary Present: no rash, no abnormal pigmentation - Musculoskeletal Present: normal posture - Psychiatric Present: oriented to time, oriented to person, oriented to place, speech is normal, memory intact - Labs 05/29/18 03:59 05/29/18 03:59 Diabetes panel 05/29/18 Range/Units 03:59 Sodium 143 (136-145) mEq/L Potassium 4.0 (3.5-5.1) mEq/L Chloride 103 (98-107) mEq/L Carbon Dioxide 36 H (23-29) mEq/L BUN 18 (6-20) mg/dL Creatinine 0.66 L (0.70-1.30) mg/dL Glucose 120 H (70-105) mg/dL Calcium 8.6 (8.6-10.3) mg/dL Calcium panel 05/29/18 05/29/18 Range/Units 03:59 03:59 Calcium 8.6 (8.6-10.3) mg/dL Phosphorus 2.5 L (2.7-4.5) mg/dL Pituitary panel 05/29/18 Range/Units 03:59 Sodium 143 (136-145) mEq/L Potassium 4.0 (3.5-5.1) mEq/L Chloride 103 (98-107) mEq/L Carbon Dioxide 36 H (23-29) mEq/L BUN 18 (6-20) mg/dL Creatinine 0.66 L (0.70-1.30) mg/dL Glucose 120 H (70-105) mg/dL Calcium 8.6 (8.6-10.3) mg/dL Adrenal panel 05/29/18 Range/Units 03:59 Sodium 143 (136-145) mEq/L Potassium 4.0 (3.5-5.1) mEq/L Chloride 103 (98-107) mEq/L Carbon Dioxide 36 H (23-29) mEq/L BUN 18 (6-20) mg/dL Creatinine 0.66 L (0.70-1.30) mg/dL Glucose 120 H (70-105) mg/dL Calcium 8.6 (8.6-10.3) mg/dL Consult Discharge Plan - Plan Additional Instructions: Please provide catheter care instructions - leg bag, night bag, leg strap and how to change the bags appropriately. 1. No heavy lifting greater than 20 pounds x2 weeks. 2. No tub baths for 2 weeks. 3. May shower. 4. He should follow up in 1 week for voiding trial. 5. He should return for any fevers, chills, nausea, vomiting, or significant hematuria. 6. Please provide dressing supplies for drain site. 7. He can use bacitracin to the penile meatus for catheter comfort. Referrals: Romel Lawler MD [Partnered Physician] - (Web request sent 05/27/18 at 1000. ) [facility] - (Please follow up with your PCP.) Prescriptions: Docusate Sodium [Doc-Q-Lace] 100 mg PO BID #60 capsule
[2018-05-29 10:12] LABS: Bilirubin,Urine Negative (Negative); Blood,Urine Large (Negative); Clarity,Urine Cloudy (Clear); Color,Urine Dark Yellow (Yellow); Glucose,Urine (UA) Normal (Normal); Ketones,Urine 40 mg/dL (Negative); Leukocyte Esterase,Urine Trace (Negative); Nitrite,Urine Negative (Negative); Protein,Urine 100 mg/dL (Neg-Trace); Specific Gravity,Urine > 1.030 (1.010-1.025); Urobilinogen,Urine Normal (Normal)
[2018-05-29 10:14] LABS: Bacteria,Urine None Seen per hpf (None-Few); Hyaline Casts,Urine None Seen per lpf (None-Few); RBC,Urine TNTC per hpf (0-3); Squamous Epithelial Cell,Urine Moderate per lpf (None-Few); WBC,Urine 0-3 per hpf (0-3)
--- NOTE | 2018-05-29 10:47 | Internal Med Progress Note ---
Hospitalist Progress Note - Encounter Date of Encounter: 05/29/18 Time of Encounter: 10:45 - Subjective Interval History: Still NG tube in place. Almost 350 mL drain by NG tube. Passing flatus. On ice chips. at bedside. Review the lab with normal electrolyte and normal white count Denies fever chills nausea vomiting headache dizziness chest pain shortness of breath diarrhea - Exam Vitals: Temp Pulse Resp BP Pulse Ox 98.8 F 90 16 137/75 94 05/29/18 10:10 05/29/18 10:10 05/29/18 10:10 05/29/18 10:10 05/29/18 10:10 Exam: General appearance: No acute distress, A&O X 3. NG tube in place Head exam: Atraumatic Eye exam: EOMI, PERRLA ENT exam: Moist oral mucosa Neck nontender, supple Respiratory exam: Clear to auscultation bilaterally Cardiovascular exam: Regular rate and rhythm, no systolic murmur Abdominal exam: Soft, nondistended, positive slight hypoactive bowel sounds Extremities exam: No calf tenderness, no pedal edema Present: Skin-no rash, warm, dry, intact Neurological exam: CN II-XII intact, no focal deficits. No facial droop. Normal speech. Normal gait. . - Assessment and Plan (1) Shortness of breath Current Visit: Yes Status: Acute Assessment and Plan: Most likely due to atelectasis -postop versus severe abdominal distention and hiatal hernia. Improving. Will repeat chest x-ray if needed. Continue incentive spirometry (2) Abdominal pain Current Visit: Yes Status: Acute Assessment and Plan: Most likely due to postoperative ileus. severe distention but not better. NG tube in place and getting monitored by a general surgeon. Removal of NG tube and advance further diet as tolerated as per surgery advice . Continue to monitor. Normal electrolyte continue to monitor. Continue normal saline IV fluid. (3) UTI (urinary tract infection) Current Visit: Yes Status: Acute Assessment and Plan: Abnormal urine analysis therefore urine culture ordered-pending report. Initially patient had fever with raised white count. Will start ciprofloxacin and await for urine culture report. (4) Prostate cancer Current Visit: Yes Status: Acute Assessment and Plan: Status post prostatectomy. Primary team is managing (5) DVT prophylaxis Current Visit: Yes Status: Acute Assessment and Plan: Heparin subcutaneous - Time Spent with Patient Total time spent is greater than 50% in coordination of care (as documented) at patient's floor/unit and/or counseling patient: 25 - 35 minutes Plan of Care Discussed with: patient Internal Medicine: Result - Labs CBC & Chem 7: 05/29/18 03:59 05/29/18 03:59 Labs: Short CBC 05/29/18 Range/Units 03:59 WBC 7.2 (4.3-11.1) K/mcL Hgb 12.7 L (12.9-16.9) g/dL Hct 40.3 (37.5-50.1) % Plt Count 204 (140-400) K/mcL BMP 05/29/18 03:59 Sodium 143 Potassium 4.0 Chloride 103 Carbon Dioxide 36 H BUN 18 Creatinine 0.66 L Glucose 120 H Calcium 8.6 Urine 05/29/18 Range/Units 10:04 Urine Color Dark Yellow (Yellow) Urine Clarity Cloudy A (Clear) Urine pH 8.0 (5.0-8.0) pH Units Ur Specific [place] > 1.030 H (1.010-1.025) Urine Protein 100 H (Neg-Trace) mg/dL Urine Glucose (UA) Normal (Normal) mg/dL Consult Discharge Plan - Plan Additional Instructions: Please provide catheter care instructions - leg bag, night bag, leg strap and how to change the bags appropriately. 1. No heavy lifting greater than 20 pounds x2 weeks. 2. No tub baths for 2 weeks. 3. May shower. 4. He should follow up in 1 week for voiding trial. 5. He should return for any fevers, chills, nausea, vomiting, or significant hematuria. 6. Please provide dressing supplies for drain site. 7. He can use bacitracin to the penile meatus for catheter comfort. Referrals: Romel Lawler MD [Partnered Physician] - (Web request sent 05/27/18 at 1000. ) [facility] [[facility] Care Provider[facility] - (Please follow up with your PCP.) Prescriptions: Docusate Sodium [Doc-Q-Lace] 100 mg PO BID #60 capsule (2) Abdominal pain Qualifiers: Abdominal location: generalized Qualified Code(s): R10.84 - Generalized abdominal pain (3) UTI (urinary tract infection) Qualifiers: Urinary tract infection type: acute cystitis
--- NOTE | 2018-05-29 12:37 | General Surgery Progress Note ---
Addendum entered and electronically signed by Maida Carney CNP 05/29/18 13:09: Please note DR. Cristal Eduardo is attending surgeon and should be co-signed on this note. [employer] Original Note: Date of Encounter: 05/29/18 Time of Encounter: 12:35 - Assessment and Plan (1) Postoperative ileus Current Visit: Yes Status: Acute Ileus is improving. He has some hypoactive bowel sounds today. He reports he feels as though he will have a bowel movement and endorses an appetite. He requests that the NG be removed. After further discussion with the patient, he is agreeable to clamping the NG with the trial of clear liquids. We will check residuals at 3 PM today. Surgery will continue to follow along with you and assess progress. Serial abdominal exams repeat a.m. labs will advance diet if he tolerates limited clears today. (2) Hiatal hernia without gangrene and obstruction Current Visit: Yes Status: Chronic Will make referral for Dr. Rajan given most of the patient's stomach is within his chest. (3) S/P prostatectomy Current Visit: Yes Status: Acute Subjective Patient reports: no new complaints, still having pain, pain is less, voiding w/o difficulty, flatus, no bowel movement, afebrile Narrative: Truman states he feels as though he will have a BM. He reports an appetite and requests the NG be removed. Objective Vital Signs - Last 8 Hours Temp Pulse Resp BP Pulse Ox 05/29/18 10:10 98.8 F 90 16 137/75 94 05/29/18 10:02 18 92 05/29/18 08:10 94 05/29/18 06:28 98.5 F 86 14 134/87 94 05/29/18 04:51 97.6 F 99 18 134/78 93 Intake and Output 05/28/18 05/29/18 05/29/18 23:59 07:59 15:59 Intake Total 1000 / 1000 1620 / 1620 500 / 500 Output Total 650 / 650 350 / 350 675 / 675 Balance 350 / 350 1270 / 1270 -175 / -175 Intake: IV Fluids 1000 / 1000 1500 / 1500 500 / 500 0.9 % Sodium Chloride 1,000 ML 1000 / 1000 1500 / 1500 500 / 500 @ 125 mls/hr IVC .Q8H MICHELLE Rx#: [id number] Oral 0 / 0 120 / 120 Output: Catheter 450 / 450 0 / 0 325 / 325 Gastric Drainage 200 / 200 350 / 350 350 / 350 Other: Meal NPO Weight 107 kg Blood Glucose* 123 103 117 Patient Weight 05/29/18 23:59 Weight 107 kg - General physical appearance well nourished, no distress, no pain (only has pain with movement or coughing) - Eyes normal ocular movement - ENT normal nares (NG secured), normal mucosa - Neck Neck exam: trachea midline - Respiratory other (decreaed resp effort; clear to auscultation) - Cardiovascular Cardiovascular exam: Present: RRR - Abdomen Abdomen: Present: bowel sounds present, soft, tender (with moderate palpation) Hernia: none - Integumentary no rash - Neurologic normal coordination, normal sensation - Musculoskeletal normal posture - Psychiatric oriented to time, oriented to person, oriented to place, speech is normal, memory intact - Labs 05/29/18 03:59 05/29/18 03:59 Diabetes panel 05/29/18 Range/Units 03:59 Sodium 143 (136-145) mEq/L Potassium 4.0 (3.5-5.1) mEq/L Chloride 103 (98-107) mEq/L Carbon Dioxide 36 H (23-29) mEq/L BUN 18 (6-20) mg/dL Creatinine 0.66 L (0.70-1.30) mg/dL Glucose 120 H (70-105) mg/dL Calcium 8.6 (8.6-10.3) mg/dL Calcium panel 05/29/18 05/29/18 Range/Units 03:59 03:59 Calcium 8.6 (8.6-10.3) mg/dL Phosphorus 2.5 L (2.7-4.5) mg/dL Pituitary panel 05/29/18 Range/Units 03:59 Sodium 143 (136-145) mEq/L Potassium 4.0 (3.5-5.1) mEq/L Chloride 103 (98-107) mEq/L Carbon Dioxide 36 H (23-29) mEq/L BUN 18 (6-20) mg/dL Creatinine 0.66 L (0.70-1.30) mg/dL Glucose 120 H (70-105) mg/dL Calcium 8.6 (8.6-10.3) mg/dL Adrenal panel 05/29/18 Range/Units 03:59 Sodium 143 (136-145) mEq/L Potassium 4.0 (3.5-5.1) mEq/L Chloride 103 (98-107) mEq/L Carbon Dioxide 36 H (23-29) mEq/L BUN 18 (6-20) mg/dL Creatinine 0.66 L (0.70-1.30) mg/dL Glucose 120 H (70-105) mg/dL Calcium 8.6 (8.6-10.3) mg/dL Consult Discharge Plan - Plan Additional Instructions: Please provide catheter care instructions - leg bag, night bag, leg strap and ho w to change the bags appropriately. 1. No heavy lifting greater than 20 pounds x2 weeks. 2. No tub baths for 2 weeks. 3. May shower. 4. He should follow up in 1 week for voiding trial. 5. He should return for any fevers, chills, nausea, vomiting, or significant hematuria. 6. Please provide dressing supplies for drain site. 7. He can use bacitracin to the penile meatus for catheter comfort. Referrals: Romel Lawler MD [Partnered Physician] - (Web request sent 05/27/18 at 1000. ) [facility] Provider[facility] - (Please follow up with your PCP.) Steven Rajan MD [Partnered Physician] - 08/25/18 9:15 am (Paraesophageal hernia) Prescriptions: Docusate Sodium [Doc-Q-Lace] 100 mg PO BID #60 capsule
[2018-05-29] MEDS: Metoclopramide 10 MG/2 ML VIAL IVP SCH ×3 (12:45→21:51)
--- NOTE | 2018-05-29 16:56 | Podiatry Consult Note ---
Date of Encounter: 05/29/18 Time of Encounter: 12:00 Assessment and Plan (1) Hallux abductovalgus Status: Acute s/p excision of right hallux soft tissue mass, fusion of hallux interphalangeal joint right foot Examined today at bedside Dusky appearance to toe noted on exam along incision lines Pulses palpable however due to dusky appearance will order KUMAR with tcpo2 while inpatient Cleansed with saline and alcohol All sutures removed at this time without complication Patient tolerated well Applied adaptic, 4x4 and kerlix bulk dressing for protection Post operative shoe gear for ambulation Will follow up with patient regarding KUMAR results Continue to monitor closely DOes not appear infected at this time Pathology results from surgery remain pending. Qualifiers: Laterality: right Qualified Code(s): M20.11 - Hallux valgus (acquired), right foot History of Present Illness HPI: Mr. Delacruz is a 53 year old male we have been consulted for follow up reg arding post operative care of excision of right hallux soft tissue mass, fusion of hallux interphalangeal joint- completed on 05/16/18 per Natividad. Patient was readmitted to hospital for bowel complications following a prostate surgery. He missed his clinic post op follow up and we have been consulted for evaluation. Patient denies any needs at this time. Denies any pain to foot. States he has been ambulating in room with boot on. Patient denies any fevers, chills, n/v or fls. Patient denies any calf pain or SOB Past Med Surg Social Fam HX - Past Medical History Medical history: no medical history, cancer (prostate) Additional medical history: prostate cancer Psychiatric history: no psych history - Past Surgical History Surgical History: vasectomy, other (s/p robotic prostatectomy) Additional surgical history: VAS 1989. right toe sx x3 2004. testicle drainage 2014. lasik sx 10/2016 - Social History Smoking Status: Never smoker Smokeless Tobacco Status: No Alcohol use: rarely Drug use: none - Family History Grandmother History Unknown: Yes Medications and Allergies RX: Docusate Sodium [Doc-Q-Lace] 100 mg PO BID #60 capsule 05/27/18 [Rx] Allergy/AdvReac Type Severity Reaction Status Date / Time No Known Allergies Allergy Verified 04/26/17 07:22 All Systems Reviewed: as per HPI Physical Exam - Constitutional Vitals: Temp Pulse Resp BP Pulse Ox 98.3 F 94 18 152/71 92 05/29/18 14:43 05/29/18 14:43 05/29/18 14:43 05/29/18 14:43 05/29/18 14:43 Exam: Podiatry General Exam: General appearance: alert awake oriented X 3. Calm and pleasant, no acute distress.. Vascular: Pedal pulses +2/4 DP/PT , No evidence of cyanosis, pallor or rubor, Edema graded at 1+/4, Skin Temperature warm, No calf pain with manual compression. capillary refill time is immediate to digits. Neurologic: diminished sensation to toe. Intact to foot. Postop Exam: S/P Sutures intact to incision line, no signs of dehiscence. No open area, no drainage, no odor, mild erythema to toe, no streaking. Minimal edema.There are 2 incision lines, one along the dorsal aspect of the toe, and to the plantar lateral toe, there was a blood blister noted to lateral plantar aspect of toe at last visit. Today there is dry blood vs ischemic changes noted along both incision lines. There is purple discoloration along medial lateral border of toe. There is slight fluctuance noted along plantar wound with slight expression of serosang fluid. No purulence. There is intact cap refill. Toe warm. Movement intact. Minimal sensation at this time. Results - Labs Result Diagrams: 05/30/18 03:37 05/30/18 03:37 Labs: Abnormal lab results Hgb 12.7 g/dL (12.9-16.9) L 05/29/18 03:59 MCHC 31.5 g/dL (31.6-35.5) L 05/29/18 03:59 Neutrophils # 12.8 K/mcL (1.6-8.9) H 05/27/18 21:48 Carbon Dioxide 36 mEq/L (23-29) H 05/29/18 03:59 Creatinine 0.66 mg/dL (0.70-1.30) L 05/29/18 03:59 BUN/Creatinine Ratio 27 (6-26) H 05/29/18 03:59 Glucose 120 mg/dL (70-105) H 05/29/18 03:59 POC Glucose 117 mg/dL (70-99) H 05/29/18 11:03 Phosphorus 2.5 mg/dL (2.7-4.5) L 05/29/18 03:59 Urine Clarity Cloudy (Clear) A 05/29/18 10:04 Ur Specific [place] > 1.030 (1.010-1.025) H 05/29/18 10:04 Urine Protein 100 mg/dL (Neg-Trace) H 05/29/18 10:04 Urine Ketones 40 mg/dL (Negative) H 05/29/18 10:04 Urine Blood Large (Negative) H 05/29/18 10:04 Ur Leukocyte Esterase Trace (Negative) H 05/29/18 10:04 Urine Microscopic RBC TNTC per hpf (0-3) H 05/29/18 10:04 Ur Squamous Epith Cells Moderate per lpf (None-Few) H 05/29/18 10:04 Ur Culture Indicated? YES (NO) A 05/29/18 10:04 H & H 05/29/18 Range/Units 03:59 Hgb 12.7 L (12.9-16.9) g/dL Hct 40.3 (37.5-50.1) % All other labs normal. Consult Discharge Plan - Plan Instructions: Mcdonnell Catheter Placement and Care (DC), Robot Assisted Laparoscopic Prostatectomy (DC), Urinary Leg Bag (GEN) Additional Instructions: Please provide catheter care instructions - leg bag, night bag, leg strap and how to change the bags appropriately. 1. No heavy lifting greater than 20 pounds x2 weeks. 2. No tub baths for 2 weeks. 3. May shower. 4. He should follow up in 1 week for voiding trial. 5. He should return for any fevers, chills, nausea, vomiting, or significant hematuria. 6. Please provide dressing supplies for drain site. 7. He can use bacitracin to the penile meatus for catheter comfort. Referrals: Georgia Archer PAC [Physician Research Management Associate] - 06/14/18 8:45 am Romel Lawler MD [Partnered Physician] - 06/02/18 10:15 am () [facility] - 06/05/18 12:15 pm (Please follow up with your PCP.) Prescriptions: RX: Docusate Sodium [Doc-Q-Lace] 100 mg PO BID #60 capsule
--- NOTE | 2018-05-29 18:25 | General Surgery Progress Note ---
Date of Encounter: 05/29/18 Time of Encounter: 18:23 - Assessment and Plan (1) Postoperative ileus Current Visit: Yes Status: Acute passing flatus ngt removed earlier today and tolerating clears prn pain control ambulate and OOB to chair, preferably with all meals (2) Hiatal hernia without gangrene and obstruction Current Visit: Yes Status: Chronic (3) S/P prostatectomy Current Visit: Yes Status: Acute (4) Shortness of breath Current Visit: Yes Status: Acute aggressive pulmonary toilet/ IS/ aerosols (5) Paralysis, diaphragm Current Visit: Yes Status: Chronic upon further review of imaging patient does not have a hiatal hernia but a paralyzed left hemidiaphragm that is high riding giving the illusion of a hiatal hernia, he has significant compression of left lower lung with potential scarring due to chronic nature IS/pulmonary toilet/scheduled aerosols patient will likely benefit from pulmonary evaluation at outpatient setting Subjective Patient reports: no new complaints, feels better, tolerating liquids well, flatus, bowel movement, afebrile Objective Vital Signs - Last 8 Hours Temp Pulse Resp BP Pulse Ox 05/29/18 16:20 20 93 05/29/18 14:43 98.3 F 94 18 152/71 92 Intake and Output 05/29/18 05/29/18 05/29/18 07:59 15:59 23:59 Intake Total 1620 / 1620 620 / 620 972 / 972 Output Total 350 / 350 1075 / 1075 Balance 1270 / 1270 -455 / -455 972 / 972 Intake: IV Fluids 1500 / 1500 500 / 500 972 / 972 0.9 % Sodium Chloride 1,000 ML 1500 / 1500 500 / 500 772 / 772 @ 125 mls/hr IVC .Q8H MICHELLE Rx#: [id number] Cipro Premix 400 MG/200 ML 400 200 / 200 mg In 200 ml @ 200 mls/hr IVPB Q12HR MICHELLE Rx#:[id number] Oral 120 / 120 120 / 120 Output: Gastric Tube Lavage Amount 100 / 100 Right Nare 100 / 100 Catheter 0 / 0 525 / 525 Gastric Drainage 350 / 350 450 / 450 Other: Meal NPO Stool Size Moderate Stool Consistency liquid Stool Color Brown Weight 107 kg Blood Glucose* 103 117 Patient Weight 05/29/18 23:59 Weight 107 kg - General physical appearance well developed, well nourished, no distress - Eyes PERRL, normal ocular movement - ENT normal mucosa, normocephalic - Neck Neck exam: trachea midline - Respiratory normal expansion, clear to auscultation - Cardiovascular Cardiovascular exam: Present: RRR - Abdomen Abdomen: Present: bowel sounds present, soft, tender (minimal and appropriate post op tenderness). Absent: guarding, rebound - Integumentary no rash - Neurologic CN 2-12 grossly intact - Musculoskeletal normal posture - Psychiatric oriented to time, oriented to person, oriented to place, speech is normal, memory intact - Labs 05/29/18 03:59 05/29/18 03:59 Diabetes panel 05/29/18 Range/Units 03:59 Sodium 143 (136-145) mEq/L Potassium 4.0 (3.5-5.1) mEq/L Chloride 103 (98-107) mEq/L Carbon Dioxide 36 H (23-29) mEq/L BUN 18 (6-20) mg/dL Creatinine 0.66 L (0.70-1.30) mg/dL Glucose 120 H (70-105) mg/dL Calcium 8.6 (8.6-10.3) mg/dL Calcium panel 05/29/18 05/29/18 Range/Units 03:59 03:59 Calcium 8.6 (8.6-10.3) mg/dL Phosphorus 2.5 L (2.7-4.5) mg/dL Pituitary panel 05/29/18 Range/Units 03:59 Sodium 143 (136-145) mEq/L Potassium 4.0 (3.5-5.1) mEq/L Chloride 103 (98-107) mEq/L Carbon Dioxide 36 H (23-29) mEq/L BUN 18 (6-20) mg/dL Creatinine 0.66 L (0.70-1.30) mg/dL Glucose 120 H (70-105) mg/dL Calcium 8.6 (8.6-10.3) mg/dL Adrenal panel 05/29/18 Range/Units 03:59 Sodium 143 (136-145) mEq/L Potassium 4.0 (3.5-5.1) mEq/L Chloride 103 (98-107) mEq/L Carbon Dioxide 36 H (23-29) mEq/L BUN 18 (6-20) mg/dL Creatinine 0.66 L (0.70-1.30) mg/dL Glucose 120 H (70-105) mg/dL Calcium 8.6 (8.6-10.3) mg/dL Consult Discharge Plan - Plan Additional Instructions: Please provide catheter care instructions - leg bag, night bag, leg strap and how to change the bags appropriately. 1. No heavy lifting greater than 20 pounds x2 weeks. 2. No tub baths for 2 weeks. 3. May shower. 4. He should follow up in 1 week for voiding trial. 5. He should return for any fevers, chills, nausea, vomiting, or significant hematuria. 6. Please provide dressing supplies for drain site. 7. He can use bacitracin to the penile meatus for catheter comfort. Referrals: Steven Rajan MD [Partnered Physician] - 08/25/18 9:15 am (Paraesophageal hernia) Romel Lawler MD [Partnered Physician] - (Web request sent 05/27/18 at 1000. ) [facility] Care Provider[facility] - (Please follow up with your PCP.) Prescriptions: Docusate Sodium [Doc-Q-Lace] 100 mg PO BID #60 capsule
[2018-05-30] MEDS: 0.9 % Sodium Chloride 1,000 ML IVC SCH ×3 (02:15→14:15)
[2018-05-30] MEDS: Ipratropium/Albuterol Neb 3 ML IH SCH ×4 (03:28→21:39)
[2018-05-30 04:29] LABS: Basophils % 0.4 %; Eosinophils # 0.2 K/mcL (0.0-0.6); Eosinophils % 3.3 %; Hematocrit 36.4 % (37.5-50.1); Hemoglobin 11.4 g/dL (12.9-16.9); Immature Granulocytes % 0.6 % (0-4); Lymphocytes % 18.8 %; Mean Corpuscular HGB Conc 31.3 g/dL (31.6-35.5); Mean Corpuscular Hemoglobin 28.6 pg (28.0-33.3); Mean Corpuscular Volume 91.5 fL (83.0-100.0); Mean Platelet Volume 9.9 fL (9.4-12.4); Monocytes # 0.5 K/mcL (0.0-1.3); Monocytes % 9.8 %; Neutrophils # 3.5 K/mcL (1.6-8.9); Platelet Count 193 K/mcL (140-400); Red Blood Count 3.98 M/mcL (4.19-5.50); Red Cell Distribution Width 13.7 % (11.5-14.5); Segmented Neutrophils % 67.1 %
[2018-05-30 04:50] LABS: BUN/Creatinine Ratio 22 (6-26); Blood Urea Nitrogen 14 mg/dL (6-20); Calcium 8.1 mg/dL (8.6-10.3); Carbon Dioxide 28 mEq/L (23-29); Chloride 105 mEq/L (98-107); Glucose 109 mg/dL (70-105); Osmolality,Calculated 295 (280-300); Potassium 3.7 mEq/L (3.5-5.1); Sodium 142 mEq/L (136-145); eGFR For Non-African Americans > 60 (> 60)
[2018-05-30] MEDS: *HR* Heparin 5,000 UNIT/ML VIAL SQ SCH ×2 (06:05→17:21)
[2018-05-30] MEDS: Pantoprazole 40 MG VIAL IVP SCH (07:21)
[2018-05-30] MEDS: Metoclopramide 10 MG/2 ML VIAL IVP SCH ×2 (07:21→11:36)
--- NOTE | 2018-05-30 08:14 | Urology Progress Note ---
Addendum entered and electronically signed by Romel Lawler MD 05/30/18 12:58: The patient was seen and examined with the physician's accounting administrative assistant. I agree with the assessment and plan. He is doing better today. Bowel function is improving. Pathology still pending. We will monitor for now. Slowly advance diet. Appreciate hospitalist support and Gen. surgery support. Original Note: Date of Encounter: 05/30/18 Time of Encounter: 07:40 - Assessment and Plan (1) Postoperative ileus Current Visit: Yes Status: Acute (2) Prostate cancer Current Visit: Yes Status: Acute (3) S/P prostatectomy Current Visit: Yes Status: Acute Assessment and plan: Patient is a 53-year-old male who is 4 days status post Robotic-assisted radical prostatectomy with bilateral pelvic lymph node dissection. Surgical pathology is pending. NG tube has been discontinued by general surgery. Urine culture is negative. Vital signs are stable and afebrile. We will consider discharge after patient tolerates diet advancement. Progress Note Subjective: no new complaints, feels better Narrative: POD #4. Patient seen and examined sitting upright in bed in no apparent distress. Patient tolerating clear liquids. Mcdonnell catheter is indwelling and draining clear urine into bedside bag. Patient states overall his pain is improved, and he is feeling much better. Patient is passing flatus and has experienced one BM. Patient denies fever, chills, chest pain, dyspnea. Objective Initial Vital Signs Temp Pulse Resp BP Pulse Ox 98.3 F 104 18 122/82 98 05/26/18 06:17 05/26/18 06:17 05/26/18 06:17 05/26/18 06:17 05/26/18 06:17 - General physical appearance Present: well developed, no distress, no pain - Respiratory Present: normal expansion, normal respiratory effort - Abdomen Present: soft, non tender, wound (Primary incisions clean, dry, intact) - Integumentary Present: no rash, no abnormal pigmentation - Musculoskeletal Present: normal posture - Psychiatric Present: oriented to time, oriented to person, oriented to place, speech is normal, memory intact - Labs 05/30/18 03:37 05/30/18 03:37 Diabetes panel 05/30/18 Range/Units 03:37 Sodium 142 (136-145) mEq/L Potassium 3.7 (3.5-5.1) mEq/L Chloride 105 (98-107) mEq/L Carbon Dioxide 28 (23-29) mEq/L BUN 14 (6-20) mg/dL Creatinine 0.63 L (0.70-1.30) mg/dL Glucose 109 H (70-105) mg/dL Calcium 8.1 L (8.6-10.3) mg/dL Calcium panel 05/30/18 Range/Units 03:37 Calcium 8.1 L (8.6-10.3) mg/dL Pituitary panel 05/30/18 Range/Units 03:37 Sodium 142 (136-145) mEq/L Potassium 3.7 (3.5-5.1) mEq/L Chloride 105 (98-107) mEq/L Carbon Dioxide 28 (23-29) mEq/L BUN 14 (6-20) mg/dL Creatinine 0.63 L (0.70-1.30) mg/dL Glucose 109 H (70-105) mg/dL Calcium 8.1 L (8.6-10.3) mg/dL Adrenal panel 05/30/18 Range/Units 03:37 Sodium 142 (136-145) mEq/L Potassium 3.7 (3.5-5.1) mEq/L Chloride 105 (98-107) mEq/L Carbon Dioxide 28 (23-29) mEq/L BUN 14 (6-20) mg/dL Creatinine 0.63 L (0.70-1.30) mg/dL Glucose 109 H (70-105) mg/dL Calcium 8.1 L (8.6-10.3) mg/dL Consult Discharge Plan - Plan Additional Instructions: Please provide catheter care instructions - leg bag, night bag, leg strap and how to change the bags appropriately. 1. No heavy lifting greater than 20 pounds x2 weeks. 2. No tub baths for 2 weeks. 3. May shower. 4. He should follow up in 1 week for voiding trial. 5. He should return for any fevers, chills, nausea, vomiting, or significant h ematuria. 6. Please provide dressing supplies for drain site. 7. He can use bacitracin to the penile meatus for catheter comfort. Referrals: Steven Rajan MD [Partnered Physician] - (Paraesophageal hernia) Romel Lawler MD [Partnered Physician] - 06/02/18 10:15 am () [facility] - (Please follow up with your PCP.) Prescriptions: Docusate Sodium [Doc-Q-Lace] 100 mg PO BID #60 capsule
--- NOTE | 2018-05-30 08:50 | Internal Med Progress Note ---
Hospitalist Progress Note - Encounter Date of Encounter: 05/30/18 Time of Encounter: 08:45 - Exam Vitals: Temp Pulse Resp BP Pulse Ox 97.6 F 75 16 134/78 97 05/30/18 07:01 05/30/18 07:01 05/30/18 07:01 05/30/18 07:01 05/30/18 08:21 Exam: General appearance: No acute distress, A&O X 3. NG tube in place Head exam: Atraumatic Eye exam: EOMI, PERRLA ENT exam: Moist oral mucosa Neck nontender, supple Respiratory exam: Clear to auscultation bilaterally Cardiovascular exam: Regular rate and rhythm, no systolic murmur Abdominal exam: Soft, nondistended, positive slight hypoactive bowel sounds Extremities exam: No calf tenderness, no pedal edema Present: Skin-no rash, warm, dry, intact Neurological exam: CN II-XII intact, no focal deficits. No facial droop. Normal speech. Normal gait. . - Assessment and Plan (1) Postoperative ileus Current Visit: Yes Status: Acute Assessment and Plan: Resolved. NG tube discontinued and patient has been started on a diet Plan for discharge per urology team (2) Prostate cancer Current Visit: Yes Status: Acute Assessment and Plan: Status post prostatectomy. Primary team is managing (3) Shortness of breath Current Visit: Yes Status: Acute Assessment and Plan: Most likely due to atelectasis -postop versus severe abdominal distention and hiatal hernia. Improving. Will repeat chest x-ray if needed. Continue incentive spirometry (4) DVT prophylaxis Current Visit: Yes Status: Acute Assessment and Plan: Heparin subcutaneous - Time Spent with Patient Total time spent is greater than 50% in coordination of care (as documented) at patient's floor/unit and/or counseling patient: Internal Medicine: Result - Labs CBC & Chem 7: 05/30/18 03:37 05/30/18 03:37 Labs: Short CBC 05/30/18 Range/Units 03:37 WBC 5.2 (4.3-11.1) K/mcL Hgb 11.4 L (12.9-16.9) g/dL Hct 36.4 L (37.5-50.1) % Plt Count 193 (140-400) K/mcL Neutrophils # 3.5 (1.6-8.9) K/mcL BMP 05/30/18 03:37 Sodium 142 Potassium 3.7 Chloride 105 Carbon Dioxide 28 BUN 14 Creatinine 0.63 L Glucose 109 H Calcium 8.1 L Urine 05/29/18 Range/Units 10:04 Urine Color Dark Yellow (Yellow) Urine Clarity Cloudy A (Clear) Urine pH 8.0 (5.0-8.0) pH Units Ur Specific [place] > 1.030 H (1.010-1.025) Urine Protein 100 H (Neg-Trace) mg/dL Urine Glucose (UA) Normal (Normal) mg/dL - Impressions Impressions Chest X-Ray 05/27/18 21:38 IMPRESSION: 1. Interval marked elevation of the left hemidiaphragm with volume loss in the left lung. CT should be considered to better evaluate. D/ /27/2018 23:08:39 Trevor Roche MD / [place] Interpreting Provider: Trevor Roche MD X-Ray 05/27/18 23:07 IMPRESSION: 1. Possible free intraperitoneal air under the right hemidiaphragm corresponding with history of recent prostatectomy. 2. Nasogastric tube in appropriate position. 3. Interval decompression of the stomach. Persistent elevated left hemidiaphragm. 4. Dilated small bowel up to 5.5 cm concerning for small bowel obstruction. Findings were discussed with GLENN Orozco on 05/28/2018 at 12:17 a.m. D/ /28/2018 07:04:02 Trevor Roche MD / [place] Interpreting Provider: Trevor Roche MD Abdomen/Pelvis CT 05/28/18 22:51 IMPRESSION: 1. Elevated left hemidiaphragm. Moderate atelectasis or airspace disease in the left upper lobe and left lower lobe. An element of chronic volume loss and scarring is suspected in the left lower lobe. 2. Minimal right basilar atelectasis. 3. Mildly dilated jejunum up to 4 cm without discrete transition point. Findings favor an acute postoperative ileus. 4. Small amount of free intraperitoneal air and small amount of pelvic ascites are likely postoperative given the recent prostatectomy. Associated soft tissue gas is present in the pelvis and proximal thighs. D/ / 05/28/2018 07:13:47 Trevor Roche MD / [place] Interpreting Provider: Trevor Roche MD Chest CT 05/28/18 22:54 IMPRESSION: 1. Elevated left hemidiaphragm. Moderate atelectasis or airspace disease in the left upper lobe and left lower lobe. An element of chronic volume loss and scarring is suspected in the left lower lobe. 2. Minimal right basilar atelectasis. 3. Mildly dilated jejunum up to 4 cm without discrete transition point. Findings favor an acute postoperative ileus. 4. Small amount of free intraperitoneal air and small amount of pelvic ascites are likely postoperative given the recent prostatectomy. Associated soft tissue gas is present in the pelvis and proximal thighs. D/ / 05/28/2018 07:13:47 Trevor Roche MD / [place] Interpreting Provider: Trevor Roche MD Consult Discharge Plan - Plan Additional Instructions: Please provide catheter care instructions - leg bag, night bag, leg strap and how to change the bags appropriately. 1. No heavy lifting greater than 20 pounds x2 weeks. 2. No tub baths for 2 weeks. 3. May shower. 4. He should follow up in 1 week for voiding trial. 5. He should return for any fevers, chills, nausea, vomiting, or significant hematuria. 6. Please provide dressing supplies for drain site. 7. He can use bacitracin to the penile meatus for catheter comfort. Referrals: Romel Lawler MD [Partnered Physician] - 06/02/18 10:15 am () [facility] Care Provider[facility] - (Please follow up with your PCP.) Prescriptions: Docusate Sodium [Doc-Q-Lace] 100 mg PO BID #60 capsule
--- NOTE | 2018-05-30 11:40 | General Surgery Progress Note ---
Date of Encounter: 05/30/18 Time of Encounter: 11:38 - Assessment and Plan (1) Postoperative ileus Current Visit: Yes Status: Acute NG tube DC'd on 05/29/2018. He was started on clear liquid diet and advance to full liquids this morning. He is tolerating his diet without nausea or vomiting, passing flatus, and having bowel movements. He is ambulating in the hallways and states his abdominal discomfort has completely resolved. His postoperative ileus appears to have resolved. He can advance to a soft diet for lunch and discharge planning per primary team. Surgery will sign off at this time. Thank you for allowing us to participate in [place]. Please call or reconsult if questions or needs arise. (2) S/P prostatectomy Current Visit: Yes Status: Acute (3) Chronically elevated hemidiaphragm Current Visit: Yes Status: Acute LEft hemidiaphram. Per record review of Dr. Eduardo's note and her further review, of imaging patient does not have a hiatal hernia but a paralyzed left hemidiaphragm that is high riding giving the illusion of a hiatal hernia, he has significant compression of left lower lung with potential scarring due to chronic nature IS/pulmonary toilet/scheduled aerosols patient will likely benefit from pulmonary evaluation at outpatient setting Subjective Patient reports: no new complaints, pain is less, tolerating liquids well, vo iding w/o difficulty, flatus, bowel movement, afebrile Objective Vital Signs - Last 8 Hours Temp Pulse Resp BP Pulse Ox 05/30/18 08:21 97 05/30/18 07:01 97.6 F 75 16 134/78 97 05/30/18 03:53 98 F 84 15 128/67 96 Intake and Output 05/29/18 05/30/18 05/30/18 23:59 07:59 15:59 Intake Total 1560 / 1560 380 / 380 420 / 420 Output Total 300 / 300 550 / 550 Balance 1260 / 1260 -170 / -170 420 / 420 Intake: IV Fluids 1200 / 1200 380 / 380 420 / 420 0.9 % Sodium Chloride 1,000 ML 1000 / 1000 180 / 180 420 / 420 @ 125 mls/hr IVC .Q8H [facility] Rx#: [id number] Cipro Premix 400 MG/200 ML 400 200 / 200 200 / 200 mg In 200 ml @ 200 mls/hr IVPB Q12HR [facility] Rx#:[id number] Oral 360 / 360 0 / 0 Output: Catheter 300 / 300 550 / 550 Other: # Bowel Movements 0 0 Weight 108.1 kg Patient Weight 05/30/18 23:59 Weight 108.1 kg - General physical appearance no distress, no pain - ENT normal nares, normal mucosa - Neck Neck exam: trachea midline - Respiratory normal expansion, normal respiratory effort, clear to auscultation - Cardiovascular Cardiovascular exam: Present: RRR - Abdomen Abdomen: Present: bowel sounds present, soft, non tender - Integumentary no rash - Neurologic normal coordination, normal sensation - Musculoskeletal normal gait, normal posture - Psychiatric oriented to time, oriented to person, oriented to place, speech is normal, memory intact - Labs 05/30/18 03:37 05/30/18 03:37 Diabetes panel 05/30/18 Range/Units 03:37 Sodium 142 (136-145) mEq/L Potassium 3.7 (3.5-5.1) mEq/L Chloride 105 (98-107) mEq/L Carbon Dioxide 28 (23-29) mEq/L BUN 14 (6-20) mg/dL Creatinine 0.63 L (0.70-1.30) mg/dL Glucose 109 H (70-105) mg/dL Calcium 8.1 L (8.6-10.3) mg/dL Calcium panel 05/30/18 Range/Units 03:37 Calcium 8.1 L (8.6-10.3) mg/dL Pituitary panel 05/30/18 Range/Units 03:37 Sodium 142 (136-145) mEq/L Potassium 3.7 (3.5-5.1) mEq/L Chloride 105 (98-107) mEq/L Carbon Dioxide 28 (23-29) mEq/L BUN 14 (6-20) mg/dL Creatinine 0.63 L (0.70-1.30) mg/dL Glucose 109 H (70-105) mg/dL Calcium 8.1 L (8.6-10.3) mg/dL Adrenal panel 05/30/18 Range/Units 03:37 Sodium 142 (136-145) mEq/L Potassium 3.7 (3.5-5.1) mEq/L Chloride 105 (98-107) mEq/L Carbon Dioxide 28 (23-29) mEq/L BUN 14 (6-20) mg/dL Creatinine 0.63 L (0.70-1.30) mg/dL Glucose 109 H (70-105) mg/dL Calcium 8.1 L (8.6-10.3) mg/dL Consult Discharge Plan - Plan Additional Instructions: Please provide catheter care instructions - leg bag, night bag, leg strap and how to change the bags appropriately. 1. No heavy lifting greater than 20 pounds x2 weeks. 2. No tub baths for 2 weeks. 3. May shower. 4. He should follow up in 1 week for voiding trial. 5. He should return for any fevers, chills, nausea, vomiting, or significant hematuria. 6. Please provide dressing supplies for drain site. 7. He can use bacitracin to the penile meatus for catheter comfort. Referrals: Romel Lawler MD [Partnered Physician] - 06/02/18 10:15 am () [facility] - (Please follow up with your PCP.) Prescriptions: Docusate Sodium [Doc-Q-Lace] 100 mg PO BID #60 capsule
--- NOTE | 2018-05-30 17:20 | Podiatry Progress Note ---
Date of Encounter: 05/30/18 Time of Encounter: 12:00 - Assessment and Plan (1) Hallux abductovalgus Status: Acute s/p excision of right hallux soft tissue mass, fusion of hallux interphalangeal joint right foot Examined today at bedside Dressing CDI Pathology returned and shows benign cyst KUMAR's returned and show adequate blood flow Due to dusky, ecchymotic appearance of toe will follow up in clinic in 1 week- nursing staff instructed to schedule with Sandhya Henson NP or myself Keep dressing CDI Call with any soiling to the dressing Call with any fevers, chills, n/v or fls. elevate Minimal weight bearing to heel only with post operative shoe gear on. Patient states he is to be discharged in AM was not admitted for issue related to foot. Qualifiers: Laterality: right Qualified Code(s): M20.11 - Hallux valgus (acquired), right foot Subjective Interval history: s/p excision of right hallux soft tissue mass, fusion of hallux interphalangeal joint right foot Resting comfortably up to chair States he is feeling much better Denies any fevers chills n/v or fls Denies any calf pain or sob Objective - Vital Signs Vital Signs: Vital Signs Temp Pulse Resp BP Pulse Ox 05/30/18 15:52 98.2 F 102 16 133/87 95 05/30/18 15:49 16 95 05/30/18 11:51 98.1 F 92 16 131/77 93 05/30/18 11:14 16 92 05/30/18 08:21 97 05/30/18 07:01 97.6 F 75 16 134/78 97 05/30/18 03:53 98 F 84 15 128/67 96 05/30/18 03:29 18 96 05/29/18 21:33 16 84 05/29/18 18:40 99 F 95 14 124/69 96 Intake and Output 05/30/18 05/30/18 05/30/18 07:59 15:59 23:59 Intake Total 380 / 380 960 / 960 Output Total 550 / 550 Balance -170 / -170 960 / 960 Intake: IV Fluids 380 / 380 720 / 720 0.9 % Sodium Chloride 1,000 ML 180 / 180 720 / 720 @ 125 mls/hr IVC .Q8H [facility] Rx#: [id number] Cipro Premix 400 MG/200 ML 400 200 / 200 mg In 200 ml @ 200 mls/hr IVPB Q12HR [facility] Rx#:[id number] Oral 0 / 0 240 / 240 Output: Catheter 550 / 550 Other: Meal Lunch Percent of Meal Consumed 100% Stool Size Small Stool Consistency formed Stool Color Brown Green # Bowel Movements 0 1 Weight 108.1 kg Patient Weight 05/30/18 23:59 Weight 108.1 kg - Exam Exam: Awake alert and oriented Dressing CDI to foot, will leave in place at this time No calf pain with manual compression - Lab Result Diagrams: 05/30/18 03:37 05/30/18 03:37 Labs: Abnormal lab results RBC 3.98 M/mcL (4.19-5.50) L 05/30/18 03:37 Hgb 11.4 g/dL (12.9-16.9) L 05/30/18 03:37 Hct 36.4 % (37.5-50.1) L 05/30/18 03:37 MCHC 31.3 g/dL (31.6-35.5) L 05/30/18 03:37 Creatinine 0.63 mg/dL (0.70-1.30) L 05/30/18 03:37 Glucose 109 mg/dL (70-105) H 05/30/18 03:37 POC Glucose 117 mg/dL (70-99) H 05/29/18 11:03 Calcium 8.1 mg/dL (8.6-10.3) L 05/30/18 03:37 Phosphorus 2.5 mg/dL (2.7-4.5) L 05/29/18 03:59 Urine Clarity Cloudy (Clear) A 05/29/18 10:04 Ur Specific [place] > 1.030 (1.010-1.025) H 05/29/18 10:04 Urine Protein 100 mg/dL (Neg-Trace) H 05/29/18 10:04 Urine Ketones 40 mg/dL (Negative) H 05/29/18 10:04 Urine Blood Large (Negative) H 05/29/18 10:04 Ur Leukocyte Esterase Trace (Negative) H 05/29/18 10:04 Urine Microscopic RBC TNTC per hpf (0-3) H 05/29/18 10:04 Ur Squamous Epith Cells Moderate per lpf (None-Few) H 05/29/18 10:04 Ur Culture Indicated? YES (NO) A 05/29/18 10:04 Microbiology, Last 48 Hours 05/29/18 10:04 Urine Culture - Final Urine,Clean Catch No growth. 05/28/18 12:10 Urine Culture - Final Urine,Mcdonnell Port No growth. Consult Discharge Plan - Plan Instructions: Mcdonnell Catheter Placement and Care (DC), Robot Assisted Laparoscopic Prostatectomy (DC), Urinary Leg Bag (GEN) Additional Instructions: Please provide catheter care instructions - leg bag, night bag, leg strap and how to change the bags appropriately. 1. No heavy lifting greater than 20 pounds x2 weeks. 2. No tub baths for 2 weeks. 3. May shower. 4. He should follow up in 1 week for voiding trial. 5. He should return for any fevers, chills, nausea, vomiting, or significant hematuria. 6. Please provide dressing supplies for drain site. 7. He can use bacitracin to the penile meatus for catheter comfort. Referrals: Georgia Archer PAC [Physician Search Coordinator] - 06/14/18 8:45 am Romel Lawler MD [Partnered Physician] - 06/02/18 10:15 am () [facility] - 06/05/18 12:15 pm (Please follow up with your PCP.) Prescriptions: Docusate Sodium [Doc-Q-Lace] 100 mg PO BID #60 capsule
[2018-05-31] MEDS: Ipratropium/Albuterol Neb 3 ML IH SCH (03:31)
[2018-05-31] MEDS: *HR* Heparin 5,000 UNIT/ML VIAL SQ SCH (05:30)
[2018-05-31 06:44] VITALS: BP 144/85
== END 2018-05-31 10:33 | disposition home or self-care (01) | DRG 707 ==
LOC: SAMDAY 05:54 → 3ANU 14:57
PROVIDERS: ADMIT Urology; ATTEND Urology